=== PATIENT | male | born 1955 | race Caucasian/White ===

== ENCOUNTER 2019-06-29 09:46 | Inpatient (IN) ==
[2019-06-29 10:53] LABS: BASO# 0.03 X1000 (0.0-0.2); BASO% 0.4 % (0.0-0.8); EOS# 0.04 X1000 (0.0-0.7); EOS% 0.6 % (0.0-10.0); HEMATOCRIT 37.6 % (42.0-52.0); HEMOGLOBIN 12.6 g/dL (14.0-18.0); LYMPH# 1.44 X1000 (1.2-3.4); LYMPH% 21.3 % (20.5-51.1); MCH 28.8 PG (27-31); MCHC 33.5 g/dL (33-37); MONO# 0.56 X1000 (0.11-0.59); MONO% 8.3 % (1.7-9.3); MPV 10.2 FL (7.4-10.4); NEUT% 69.4 % (42.2-75.2); PLT 273 X1000 (130-400); RBC 4.37 XMIL (4.7-6.1); WBC 6.77 X1000 (4.8-10.8)
[2019-06-29 11:12] LABS: AGAP 14; ALB/GLOB RATIO 1.5; ALBUMIN 3.8 g/dL (3.5-5.0); ALKALINE PHOSPHATASE 87 U/L (32-122); BUN 16 mg/dL (8-22); CALCIUM 8.9 mg/dL (8.8-10.2); CHLORIDE 100 mmol/L (98-107); COSMO 283; CREATININE 0.9 mg/dL (0.7-1.2); ESTIMATED GFR > 60; GLUCOSE 308 mg/dL (70-104); GOT 14 U/L (10-34); GPT 16 U/L (10-44); POTASSIUM 4.5 mmol/L (3.5-5.1); SODIUM 135 mmol/L (136-145); TCO2 21 mmol/L (25-35); TOTAL BILIRUBIN 1.65 mg/dL (0.20-1.00); TOTAL PROTEIN 6.3 g/dL (6.3-8.3)
--- NOTE | 2019-06-29 11:31 | Diag Imaging Result Doc PS360 ---
EXAM: CHEST-2 VIEWS 06/29/2019 HISTORY: shortness of breath TECHNIQUE: PA and lateral chest COMMENT: There are sternotomy wires. The heart size is at the upper limits of normal. The inspiration is suboptimal. There is minimal ill-defined opacity over the left costophrenic angle which was not clearly present on 10/11/2018. Otherwise there has been no significant change considering differences in technique. IMPRESSION: Questionable left lower lobe pneumonia. Electronically signed by Abelino Lord 06/29/2019 11:29 AM
[2019-06-29] MEDS ORDERED: NS 1,000 ML ONE (11:51)
[2019-06-29] MEDS ORDERED: NS 1,000 ML IV ONE (11:51)
--- NOTE | 2019-06-29 12:53 | Diag Imaging Result Doc PS360 ---
EXAM: CT ANGIOGRAM PULMONARY ARTERIES 06/29/2019 HISTORY: elevated dimer TECHNIQUE: This exam was performed using automated exposure control, adjustment of mA or kV according to patient size, and/or use of iterative reconstruction technique. COMMENT: 3-D MIPS were performed. There are no filling defects in the pulmonary arteries. The aorta is not well opacified with contrast but is normal in caliber. There is extensive coronary calcification. There is a small hiatal hernia. There are no pleural fluid collections. There are some increased interstitial markings in the lung bases. There is platelike atelectasis in the right lower lobe. Some patchy groundglass opacities are seen adjacent to the pleura in the right upper lobe. There are prominent aorticopulmonary window and right paratracheal nodes. The regional skeleton is intact. IMPRESSION: No evidence of pulmonary emboli. Mild pulmonary edema. Coronary atherosclerosis. Nonspecific mediastinal adenopathy. Electronically signed by Abelino Lord 06/29/2019 12:50 PM
[2019-06-29 13:18] LABS: FREE T4 1.43 ng/dL (0.93-1.70); TSH 1.87 uIUmL (0.27-4.20)
[2019-06-29] MEDS ORDERED: TYLENOL PO PRN (13:21)
[2019-06-29] MEDS ORDERED: ZOFRAN IV PRN (13:21)
--- NOTE | 2019-06-29 13:50 | HISTORY AND PHYSICAL ---
HISTORY: Mr. Yoder is a 64-year-old white male. He is seen by CYNDIE Gill under Kelly Yoder. 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 He had a heart attack and underwent quadruple bypass. He has a past medical history of coronary artery disease, congestive heart failure, hypertension, hyperlipidemia. Of course a myocardial infarction in 2015. PAST SURGICAL HISTORY: He is status post CABG with 4 bypasses. ALLERGIES: He denies any known drug allergy. FAMILY HISTORY: He states he does not have a history of heart disease or lung disease or renal problems. No medical problems he is aware of. SOCIAL HISTORY: He never has smoked. Just occasional alcohol. No illicit drugs. He is . REVIEW OF SYSTEMS: General: No weight gain or loss. No fever or chills. HEENT: Unremarkable. Respiratory: No increased work of breathing or dyspnea until the last 2 weeks back. In fact he built a fence about a month ago, wooden fence which was a lot of work. He tolerated that pretty well and denies any change in visual or hearing acuity. He started having increased dyspnea and shortness of breath 2 weeks ago and is just progressed. Denies really orthopnea or paroxysmal nocturnal internal dyspnea. He did state he has had some tightness in his chest off and on for the last couple weeks, actually the last week and complained of muscle cramping in the left leg in particular. Did not complain of pedal edema. No fever or chills. GI/: No change in his bowels or urinary habits. No sign of gross hematuria. Musculoskeletal: Neurologic just muscle cramps. No focal changes. Endocrinologic/hemologic: No significant history. PHYSICAL EXAMINATION: Temperature 97.7 degrees, pulse 86, respirations 19, blood pressure 122/91. GENERAL: Weight 190 pounds, height 5 feet 8.5 inches. 8 0.5 inches pupils are equal and round. HEENT: Pupils are equal round. Oral nasal mucosa unremarkable. LUNGS: In careful examination, the left lower lobe you can appreciate some rhonchi. CARDIOVASCULAR: Regular rhythm and rate without murmur or S3. NECK: Veins it is it is difficult. He has a full oliver is hard to tell what the neck pressure was. He says his mouth is dry. Supple. No thyromegaly. LUNGS: Lungs are clear anterolateral and posterior. ABDOMEN: Soft. SKIN: Warm and dry. EXTREMITIES: Without edema. No clubbing. SKIN: Without rashes. LABORATORY DATA: White blood cell count 6770, hematocrit 37, platelet count 273,000. Sodium 135, potassium 4.5, chloride 100, BUN 16, creatinine 0.9. Blood sugar 308. AST 14, ALT 16, alkaline phosphatase 87, albumin is 3.8. D-dimer was mildly elevated at 0.58. Chest x-ray shows questionable left lower lobe pneumonia. Pulmonary arteriogram no evidence of pulmonary emboli, mild pulmonary edema, coronary atherosclerosis, nonspecific mediastinal adenopathy. ASSESSMENT AND PLAN: 1. Questionable left lower lobe pneumonia and shortness of breath sounds more consistent with pulmonary venous hypertension. Radiographically, it is not real impressive. I think we ought to check an echocardiogram and we will check serial cardiac enzymes troponin and CK and treat him empirically for the pneumonia. 2. Coronary artery disease, history of bypass in 2015, coronary artery bypass grafting bypass x4. 3. Hypertension. 4. Hyperlipidemia. 5. We will get serial electrocardiograms as well. REVIEW OF MEDICATIONS: Home medicines: We will keep him on his aspirin 325 mg a day, Coreg 3.125 mg b.i.d., Celexa 10 mg at bedtime, Lasix 20 mg p.o. b.i.d., Neurontin 300 mg b.i.d., glimepiride 4 mg q.a.m., insulin glargine 22 units q.a.m., Prinivil 5 mg q.a.m., lisinopril 20 mg a day, metformin 500 mg b.i.d., and he takes Robaxin 750 mg p.o. b.i.d. p.r.n. We will get serial electrocardiograms as well this. cc: Shahzad Escobar MD
[2019-06-29] MEDS: ROCEPHIN 1 GM in NS 50 ML IV SCH (14:50)
--- NOTE | 2019-06-29 15:16 | CARDIOLOGY CONSULTATION ---
DATE: 06/29/2019 CHIEF COMPLAINT ON PRESENTATION: Chest tightness, shortness of breath. HISTORY OF PRESENT ILLNESS: Mr. Yoder is a 64-year-old, white male with a history of coronary artery bypass grafting who presented for shortness of breath and chest tightness that has been worsening over the last week or so. Patient reports this will occur with activities such as getting up and walking around in the house as well as with lying down in bed. He has reported no recent fevers or coughs. The patient reports compliance with his medications and sees Dr. Dia Hernandez in [place] for his cardiology followup, last saw him around 1 month ago. PAST MEDICAL HISTORY: 1. He has a history of a 4 vessel bypass performed in April of 2015 in [place], [place]. This was a FERNANDEZ to the LAD, vein graft to the first obtuse marginal, vein graft to the first diagonal, and vein graft to the PDA. I am not aware of any testing that the patient has had since then. He thinks he had an echocardiogram but it does not sound like he has had any ischemic testing since then. 2. Diabetes. 3. Hypertension. 4. Hyperlipidemia. SOCIAL HISTORY: He does not smoke. Rare alcohol. No illicit drugs. 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 FAMILY HISTORY: No history of heart disease or lung disease in the first-degree family members. REVIEW OF SYSTEMS: A 10 system review of systems is negative except for those things mentioned in the HPI. PHYSICAL EXAMINATION: Vital Signs: He is afebrile, heart rate is 60, blood pressure 103/82. General: He is in no acute distress. HEENT: Oropharynx is moist. Poor dentition. Eye examination shows pink conjunctivae and white sclerae. Neck: Examination shows no obvious thyromegaly or thyroid tenderness. Cardiovascular: He sounds to be in a regular rate and rhythm. He has no obvious murmurs. He has no S3. He has no lower extremity edema. He has no carotid bruits. Chest Examination: Clear bilaterally. He has no increased work of breathing. Abdomen: Soft, nontender, nondistended. He has no obvious organomegaly. Skin: Examination is warm and dry throughout without any rashes. Neurological: He is moving all extremities well. He has no lateralizing deficits. PERTINENT DATA: His EKG shows sinus rhythm. He has suggestion of left atrial enlargement, nonspecific ST-T changes. He had a pulmonary arteriogram demonstrating no evidence of pulmonary emboli. Mild pulmonary edema is identified, coronary atherosclerosis as well. His lab data shows a white count of 6.7, hematocrit 37, platelet count 273,000. His sodium is 135, potassium is 4.5, BUN is 16, creatinine 0.9. Cardiac enzymes are negative. He does not have a proBNP back as of yet. ASSESSMENT: Mr. Yoder is a 64-year-old gentleman with a history of coronary artery disease who presented with the above symptomatology, concerning for possible heart failure and/or ischemia. PLAN: We will proceed with myocardial perfusion imaging in the morning. We will check an echocardiogram. We restarted some of his medications. We will check a lipid profile. Patient, for some reason, is not listed to be on a statin at home but likely will need high-intensity statin therapy. I will initiate atorvastatin at a dose of 40 mg at bedtime. We will ensure that he is on an 81 mg aspirin as well. cc: Arash Zelaya MD
[2019-06-29] MEDS: ZITHROMAX 500 MG/NS 500 MG/250 ML IVPB IV SCH (15:19)
[2019-06-29] MEDS: DUONEB (A & A) INH SCH ×3 (15:54→23:20)
[2019-06-29] MEDS: LIPITOR PO SCH (20:31)
[2019-06-29] MEDS: COREG PO SCH (20:31)
--- NOTE | 2019-06-29 22:47 | EKG Report ---
Test Performed on : 06/29/2019 09:51:46 AM Test Reason : SOB Blood Pressure : / mmHG Vent. Rate : 089 BPM Atrial Rate : 089 BPM P-R Int : 188 ms QRS Dur : 102 ms QT Int : 392 ms P-R-T Axes : 051 -17 090 degrees QTc Int : 476 ms Normal sinus rhythm. Possible Left atrial enlargement Nonspecific T wave abnormality Prolonged QT Abnormal ECG When compared with ECG of 04-AUG-2018 10:24, Criteria for Anterior infarct are no longer present Unconfirmed Result
[2019-06-30] MEDS: DUONEB (A & A) INH SCH ×7 (04:59→22:57)
[2019-06-30 06:14] LABS: BASO# 0.03 X1000 (0.0-0.2); BASO% 0.4 % (0.0-0.8); EOS# 0.06 X1000 (0.0-0.7); EOS% 0.8 % (0.0-10.0); HEMATOCRIT 40.3 % (42.0-52.0); IMM GRAN# 0.02 X1000 (0.0-0.04); IMM GRAN% 0.3 % (0.0-0.5); LYMPH# 1.48 X1000 (1.2-3.4); LYMPH% 19.6 % (20.5-51.1); MCH 28.1 PG (27-31); MCHC 32.3 g/dL (33-37); MCV 87.2 FL (81-99); MONO# 0.43 X1000 (0.11-0.59); MONO% 5.7 % (1.7-9.3); MPV 10.5 FL (7.4-10.4); NEUT# 5.55 X1000 (1.4-6.5); NEUT% 73.2 % (42.2-75.2); PLT 266 X1000 (130-400); RBC 4.62 XMIL (4.7-6.1); RDW 14.3 % (11.5-14.5); WBC 7.57 X1000 (4.8-10.8)
[2019-06-30 06:24] LABS: AGAP 14; BUN 16 mg/dL (8-22); CALCIUM 8.2 mg/dL (8.8-10.2); CHLORIDE 102 mmol/L (98-107); CHOLESTEROL 114 mg/dL (0-200); COSMO 284; CREATININE 1.2 mg/dL (0.7-1.2); ESTIMATED GFR > 60; GLUCOSE 191 mg/dL (70-104); HDL 23 mg/dL (35-55); LDL 77 mg/dL; POTASSIUM 4.9 mmol/L (3.5-5.1); SODIUM 139 mmol/L (136-145); TCO2 23 mmol/L (25-35); TRIGLYCERIDES 70 mg/dL (39-160); VLDL 14 mg/dL
[2019-06-30] MEDS ORDERED: LEXISCAN ONE (07:57)
[2019-06-30] MEDS ORDERED: PRINIVIL PO SCH (09:00)
--- NOTE | 2019-06-30 09:16 | CARDIOLOGY PROGRESS NOTE ---
DATE: 06/30/2019 SUBJECTIVE: Mr. Yoder reports he feels much better this morning. He did not have any chest pain overnight. PHYSICAL EXAMINATION: Vital Signs: Afebrile. Heart rate 88, blood pressure 139/96. His I's and O's are limited and appear relatively matched. General: No acute distress. Cardiovascular: He sounds to be in a regular rate and rhythm. He has no murmurs. He has no S3. Extremities: No lower extremity edema. Chest: Sounds clear bilaterally. He has no increased work of breathing. Abdomen: Soft, nontender. PERTINENT DATA: White count 7.6, hematocrit 40, platelet count is 266,000. His sodium is 139, potassium 4.9, BUN 16, creatinine is 1.2. LDL 77, HDL 23. ASSESSMENT: Mr. Yoder is a 64-year-old gentleman who came in with some shortness of breath, chest tightness. It has been worse over the last week or so, not clearly exertional. PLAN: I will give him a dose of Lasix today. Perfusion imaging is currently pending as is his echocardiogram. We will recheck laboratories in the morning. His medications were re-initiated yesterday. His lipids are not at goal. I have already initiated atorvastatin at a dose of 40 mg at bedtime. He was apparently statin naive prior to that. ADDENDUM: A large LV thrombus is noted on his echo today. Will initiate lovenox. cc: MD DREA Arndt
[2019-06-30] MEDS: ASPIRIN EC PO SCH (10:35)
[2019-06-30] MEDS: ALDACTONE PO SCH (10:35)
[2019-06-30] MEDS: COREG PO SCH ×2 (10:35→23:01)
[2019-06-30] MEDS: ROCEPHIN 1 GM in NS 50 ML IV SCH (14:49)
[2019-06-30] MEDS: LOVENOX SUBQ SCH ×2 (14:57→23:01)
[2019-06-30] MEDS: LASIX IV SCH (14:57)
[2019-06-30] MEDS: ZITHROMAX 500 MG/NS 500 MG/250 ML IVPB IV SCH (15:53)
--- NOTE | 2019-06-30 16:46 | Diag Imaging Result Document ---
PROCEDURE NAME: MYOCARDIAL PERF SCAN, STR/REST - 06/30/2019 STUDY: Rest/stress Lexiscan myocardial perfusion study. INDICATION: Patient with chest pain. DESCRIPTION: The patient came into the nuclear laboratory, received resting injection of technetium 99 sestamibi 12.5 mCi. Multiple tomographic views of the cardiac structures were obtained at rest. Subsequently, the patient underwent infusion of Lexiscan 0.4 mg. At peak infusion, injected with technetium 99 sestamibi 36.4 mCi. Multiple tomographic views of the cardiac structures were obtained following the completion of the exercise protocol. SUMMARY OF THE ELECTROCARDIOGRAPHIC PORTION OF THE STUDY: Resting ECG shows sinus rhythm, rate is 85 beats per minute. Resting blood pressure 143/105. Resting ECG shows evidence of septal scar and diffuse ST-T abnormality. During the protocol, the heart rate increased to a maximum of 94 beats per minute. Blood pressure went up to 158/113. The patient reported no chest pain, shortness of breath, or palpitations. The ECG showed no changes. Following the completion of the test, the heart rate and blood pressure returned back to their baseline. In summary, the electrocardiographic response to Lexiscan infusion is unremarkable. SUMMARY OF THE MYOCARDIAL PERFUSION PORTION OF THE STUDY: Poststress tomographic views of the left ventricle showed a severe, extensive inferolateral wall defect. The defect spans the base of the lateral/inferolateral wall all the way to the apical portion. The stress images also showed the tiny focal apical defect and a very trivial, tiny mid anterior wall defect. The rest images showed the inferolateral defect and the apical defect are fixed. There is tiny reversibility in the mid anterior wall. This is really not significant. Polar plots revealed basically the same. There is no convincing evidence of inducible ischemia. There is extensive inferolateral wall scar. That would be consistent with an extensive inferolateral myocardial infarction. Gated SPECT shows significant enlargement of the left ventricular chamber with significant impairment of systolic function. Ejection fraction 30% using the [employer] software and 22% using the [employer] software. The lung/heart ratio is elevated. TID is 1.01. SUMMARY: This study shows: 1. Abnormal resting electrocardiogram with an unremarkable response to infusion of Lexiscan. 2. Abnormal poststress myocardial perfusion scan. There is scintigraphic evidence of an extensive inferolateral wall scar. There is really no evidence of any significant degree of inducible ischemia. 3. Significantly impaired left ventricular systolic function with ejection fraction of 30% with global impairment, more so at the level of the inferolateral wall. The chamber is significantly enlarged. 4. This study suggests an old inferolateral scar and this increases the patient's risk for future cardiac events. cc: MD Arash Franks MD
--- NOTE | 2019-06-30 18:50 | PROGRESS NOTE ---
DATE: 06/30/2019 SUBJECTIVE: Mr. Yoder really wanted to go home. He is feeling much better, breathing much more comfortably. Unfortunately, echocardiogram showed a mural thrombus. I think he has been told this before at 1 time he was supposed to be on Xarelto and he never did get the prescription I do not believe. He is breathing better. OBJECTIVE: Vital Signs: He remains afebrile, temperature 98.1 degrees, pulse 90, respirations 16, blood pressure 118/73. HEENT: Pupils are equal and round. Lungs: Are clear in all lung ochoa. Cardiovascular: Regular rate without murmur or S3. Abdomen: Soft, skin is warm and dry. OUTPUT: Urine output is was about 1000 mL yesterday. ASSESSMENT AND PLAN: 1. This 64-year-old came in with shortness of breath, chest tightness has been worse in the last week. He was given a dose of Lasix. This morning, perfusion imaging currently was pending, but review of the echocardiogram it appears he has a mural thrombus. His myocardial perfusion scan abnormal. Resting EKG unremarkable response to infusion of Lexiscan. Abnormal post stress myocardial perfusion scan with extensive inferior lateral wall scar. No evidence of any significant degree of inducible ischemia. Significantly impaired left ventricular systolic function, ejection fraction was 30% global impairment more so at the level inferior lateral wall. Chamber was significantly enlarged. Studies suggest an old inferior lateral scar and then echocardiogram showed a mural thrombus. So, plan is to start some Lovenox and probably need to be on a long-term anticoagulant for least 3 months. 2. Congestive heart failure with reduced ejection fraction. Appears to have better compensation. 3. History of coronary artery disease. I do not see evidence of active ischemia, but he did present with chest pain. Note that his pulmonary arteriogram did not show any pulmonary thromboemboli, so keep him here. Put him on Lovenox. Hopefully can be discharged soon on anticoagulant. LABORATORY DATA: Review of his lab today white count 7570, hematocrit 40, platelet count 266,000. Electrolytes look good. Creatinine 1.2. Sodium 139, potassium 4.9, chloride 102, BUN 16, calcium 8.2. cc: Shahzad Escobar MD
--- NOTE | 2019-06-30 19:10 | ECHO REPORT ---
ORDER DATE: 06/30/2019 INTERPRETING PHYSICIAN: Dr. Virgen CLINICAL INDICATIONS: CHF. M-MODE MEASUREMENTS: Left ventricle end diastole: 6.3 cm. Left ventricle end systole: 5.9 cm. Posterior wall: 0.7 cm. Interventricular septum: 1.0 cm. Left atrium: 5.1 cm. Aortic root: 3.1 cm. SUMMARY OF 2-DIMENSIONAL IMAGIN. Left ventricular chamber is markedly dilated. There is significant impairment of the posterolateral wall of the left ventricle. The apex is severely hypokinetic- akinetic ,and there is evidence of organized thrombus attached to the apex measuring in dimensions 2.7 x 2.1 x 1.9 cm. It is dense and well attached. It is not oscillating. LV EF estimated at 27-30%. 2. The aortic valve shows sclerosis of the cusps. Color flow mapping is unremarkable. The cardiac output is low. There is no stenosis. 3. Mitral valve shows moderate degree of regurgitation. There is suggestion of a ruptured chordae with a jet of regurgitation that is directed posteriorly. 4. The pulmonic valve is unremarkable. 5. The tricuspid valve shows moderate degree of regurgitation. 6. The pulmonary pressure is significantly elevated, estimated at 84 mmHg. 7. There is no pericardial effusion. 8. The right-sided chambers appear to be moderately enlarged. Clinical correlation is strongly recommended. Dr. Arash Zelaya was notified early in the morning about these findings. cc: MD Zahra Franks CRNP MTDD
[2019-06-30] MEDS: LIPITOR PO SCH (23:01)
[2019-07-01] MEDS: DUONEB (A & A) INH SCH ×6 (03:54→22:52)
[2019-07-01 07:00] LABS: AGAP 10; BUN 20 mg/dL (8-22); CALCIUM 8.6 mg/dL (8.8-10.2); CHLORIDE 101 mmol/L (98-107); COSMO 277; CREATININE 1.2 mg/dL (0.7-1.2); ESTIMATED GFR > 60; GLUCOSE 147 mg/dL (70-104); MAGNESIUM 2.1 mg/dL (1.5-2.7); POTASSIUM 4.1 mmol/L (3.5-5.1); SODIUM 136 mmol/L (136-145); TCO2 25 mmol/L (25-35)
[2019-07-01] MEDS: ASPIRIN EC PO SCH (08:49)
[2019-07-01] MEDS: COREG PO SCH ×2 (08:50→22:02)
[2019-07-01] MEDS: ALDACTONE PO SCH (08:50)
[2019-07-01] MEDS: LASIX IV SCH (08:50)
[2019-07-01] MEDS ORDERED: COZAAR PO SCH (09:00)
--- NOTE | 2019-07-01 09:22 | Extremity Venous Study ---
PROCEDURE NAME: Venous U/S Bilateral Legs - 06/29/2019 REQUESTING PROVIDER: Yvonne MATERIAL LIAISON: David INDICATION: Elevated D-dimer. EQUIPMENT: [employer] Vivid E9 ultrasound system with a 9 L-D transducer. FINDINGS: Images of bilateral lower extremity venous systems were obtained in both sagittal and transverse planes. Doppler was used to evaluate veins for spontaneity, phasicity, respiratory excursion, and digital augmentation. Results are normal venous compression, normal venous flow. No obvious superficial or deep venous thrombosis noted. INTERPRETATION: Essentially normal bilateral lower extremity venous study. cc: MD Zahra Fu CRNP
[2019-07-01] MEDS: LOVENOX SUBQ SCH ×2 (12:33→23:15)
[2019-07-01] MEDS: ROCEPHIN 1 GM in NS 50 ML IV SCH (13:15)
--- NOTE | 2019-07-01 13:25 | CARDIOLOGY PROGRESS NOTE ---
DATE: 07/01/2019 SUBJECTIVE: Mr. Yoder reports he feels much better. He has no orthopnea, no chest pain. PHYSICAL EXAMINATION: Afebrile. Heart rate 81. His blood pressure is 147/92. Is and Os are quite negative, somewhere around 4.8 L negative. Generally, he is no acute distress. Cardiovascular: He sounds to be in a regular rate and rhythm. He has no murmurs. He has no S3. He has no lower extremity edema. His chest exam sounds clear bilaterally. He has no increased work of breathing. His abdomen is soft and nontender. He has no obvious organomegaly. PERTINENT DATA: His sodium is 136, potassium is 4.1, his BUN is 20, creatinine is 1.2. His magnesium level is 2.1. His proBNP is 4147. LDL is 77. ASSESSMENT: Mr. Yoder is a 64-year-old male who presented with heart failure type symptoms. PLAN: His nuclear scan shows an EF of somewhere in the 22 to 30 percent range. He has a fixed defect in the inferolateral territory with no degree of ischemic changes. His echocardiogram shows an EF in the 25 to 30 percent range as well. Evidence for a thrombus was identified. We will continue to titrate medications. The patient reports he does not have any insurance so we will continue him on losartan for the time-being, titrating the dose up to 100 mg. I will initiate warfarin tonight as well at a dose of 5 mg. He is on Lovenox for his thrombus. We will check INRs. Continue with medical therapy. cc: Arash Zelaya MD
[2019-07-01] MEDS: ZITHROMAX 500 MG/NS 500 MG/250 ML IVPB IV SCH (13:43)
[2019-07-01 15:43] LABS: INR 1.38; PROTIME 17.2 Seconds (11.0-16.0)
[2019-07-01] MEDS ORDERED: COUMADIN PO SCH (21:00)
--- NOTE | 2019-07-01 21:55 | PROGRESS NOTE ---
DATE: 07/01/2019 SUBJECTIVE: The patient is resting comfortably in bed. He has no complaints at this time. OBJECTIVE: Vital Signs: Temperature 98.1 degrees, blood pressure 126/95, heart rate 81, respirations 18, O2 saturation is 95% on room air. General: This is an elderly male, lying in bed in no acute distress. Heart: S1, S2 normal, regular rate and rhythm. Lungs: Equal air entry bilaterally. No wheezing. No rales. No rhonchi. Abdomen: Positive bowel sounds. Soft, nontender, nondistended. Extremities: No edema, no cyanosis. Neurologic: The patient is alert and oriented x3. DIAGNOSTIC STUDIES: INR 1.3. Sodium 136, potassium 4.1, chloride 101, CO2 of 25, BUN 20, creatinine 1.2, glucose 147. ASSESSMENT AND PLAN: 1. Acute on chronic systolic congestive heart failure exacerbation. Continue with the treatment regimen as directed by the faceter. 2. Left ventricular thrombus. The patient is on Lovenox and Coumadin. Continue to monitor the INR until it is therapeutic. 3. Diabetes mellitus type 2. Continue with sliding scale insulin. 4. Cardiomyopathy. Aware. Continue on the current cardiac medications. 5. Hypertension. Continue with the antihypertensive titration as directed by the faceter. cc: Jojo Sue MD MTDD
[2019-07-01] MEDS: LIPITOR PO SCH (22:03)
[2019-07-02] MEDS: DUONEB (A & A) INH SCH ×6 (03:36→23:16)
[2019-07-02 07:20] LABS: HEMATOCRIT 39.6 % (42.0-52.0); MCH 28.3 PG (27-31); MCHC 32.8 g/dL (33-37); MCV 86.3 FL (81-99); MPV 10.2 FL (7.4-10.4); RBC 4.59 XMIL (4.7-6.1); RDW 14.1 % (11.5-14.5); WBC 6.44 X1000 (4.8-10.8)
[2019-07-02 07:34] LABS: INR 1.34; PROTIME 16.8 Seconds (11.0-16.0)
--- NOTE | 2019-07-02 07:39 | Diag Imaging Result Doc PS360 ---
EXAM: CHEST-1 VIEW HISTORY: dyspnea TECHNIQUE: Single view COMPARISON: 06/29/2019 FINDINGS: The lungs are well expanded. The heart is mildly enlarged. There are sternal wires and surgical clips. The vessels are not distended. There are no infiltrates. No effusion identified. IMPRESSION: Mild cardiomegaly. Electronically signed by Tanmay Vail 07/02/2019 7:37 AM
[2019-07-02 07:45] LABS: AGAP 13; BUN 19 mg/dL (8-22); CALCIUM 7.9 mg/dL (8.8-10.2); CHLORIDE 102 mmol/L (98-107); COSMO 284; ESTIMATED GFR > 60; GLUCOSE 166 mg/dL (70-104); POTASSIUM 3.8 mmol/L (3.5-5.1); SODIUM 139 mmol/L (136-145); TCO2 24 mmol/L (25-35)
[2019-07-02] MEDS: ASPIRIN EC PO SCH (08:25)
[2019-07-02] MEDS: ALDACTONE PO SCH (08:25)
[2019-07-02] MEDS: COREG PO SCH ×2 (08:25→20:02)
[2019-07-02] MEDS: COZAAR PO SCH (08:25)
[2019-07-02] MEDS: LASIX IV SCH (08:26)
[2019-07-02] MEDS ORDERED: ENTRESTO 24 MG-26 MG TABLET PO SCH (09:00)
--- NOTE | 2019-07-02 13:23 | CARDIOLOGY PROGRESS NOTE ---
DATE: 07/02/2019 SUBJECTIVE: Mr. Yoder reports he is doing well. He has no lower extremity edema. No pain complaints and no orthopnea. OBJECTIVE: Afebrile. Heart rate 69. Blood pressure 100/68. Most of his systolics have been in the 100s to 120 range.General: He is in no acute distress. Cardiovascular: He sounds to be in a regular rate and rhythm. He has no obvious murmurs. He has no S3. He has no lower extremity edema. Chest: Exam is clear bilaterally. He has no increased work of breathing. Abdomen: His abdomen is soft and nontender. PERTINENT DATA: White count 6.4, hematocrit 39, and platelet count is 251,000. His INR today is 1.3 as it was yesterday. BUN and creatinine are 19 and 1.0. ProBNP was 2380. Admission proBNP was 5420. Chest x-ray demonstrates mild cardiomegaly with no evidence of vascular distention or edema. ASSESSMENT: Mr. Yoder is a 64-year-old gentleman with history of coronary disease. He presented with new onset of heart failure. PLAN: Nuclear perfusion imaging shows fixed defects with an ejection fraction of around 30%. The defects were identified in the inferior lateral wall. Again, no evidence of ischemia. Wall motion abnormalities were identified consistent with that. His echocardiogram demonstrated an EF in the 25 to 30 percent range with a large LV thrombus. He has been initiated on Lovenox and warfarin. The patient does not have insurance coverage. He was diuresed, and initiated on a heart failure regimen including beta blockers, and changed to an ARB as well as spironolactone. From my standpoint, the patient to be discharged with Lovenox shots at home given 1 mg per kg b.i.d. with followup with his primary clinical programmer Dr. Hernandez. He is on warfarin at a dose of 5 mg at bedtime. At this point, he seems relatively stable from a cardiovascular standpoint. He has diuresed. I will stop his IV Lasix, and place him on oral Lasix at a dose of 40 mg daily. He was previously on 20 mg daily. cc: Arash Zelaya MD
[2019-07-02] MEDS: LOVENOX SUBQ SCH ×2 (13:53→23:03)
[2019-07-02] MEDS: ROCEPHIN 1 GM in NS 50 ML IV SCH (13:54)
[2019-07-02] MEDS: ZITHROMAX 500 MG/NS 500 MG/250 ML IVPB IV SCH (14:44)
--- NOTE | 2019-07-02 19:47 | PROGRESS NOTE ---
DATE: 07/02/2019 SUBJECTIVE: The patient is resting comfortably in bed. He denies having any chest pain or shortness of breath. No acute events noted overnight. OBJECTIVE: Vital Signs: Temperature 98.2 degrees, blood pressure 137/98, heart rate 88, respirations 18, O2 saturation is 98% on room air. Intake 1.5 L, output 1.9 L. General: This is a chronically ill-appearing, elderly male, lying in bed in no acute distress. Heart: S1, S2 normal. Regular rate and rhythm. Lungs: Equal air entry bilaterally. No wheezing. No rales. No rhonchi. Abdomen: Positive bowel sounds. Soft, nontender, nondistended. Extremities: No edema. No cyanosis. Neurologic: The patient is alert and oriented x4. LABORATORY AND DIAGNOSTIC DATA: INR 1.34. White blood cell count 6.4, hemoglobin 13, hematocrit 39, platelets 251,000. BUN 19, creatinine 1, glucose 166. Chest x-ray shows mild cardiomegaly. ASSESSMENT AND PLAN: 1. Acute on chronic systolic congestive heart failure exacerbation. Continue on the current medications as prescribed by the welfare manager. 2. Left ventricular thrombus. We will continue on Lovenox and Coumadin until the INR is therapeutic, will then discontinue the Lovenox. There is no assistance available for Lovenox therapy at home since the patient does not have health insurance. 3. Diabetes mellitus type 2. We will restart the metformin. 4. Hypertension. Slowly improving. Continue on the current antihypertensive regimen. 5. Constipation. Will start laxative therapy. 6. Disposition. Will plan to discharge the patient home once his INR is therapeutic. cc: Jojo Sue MD [facility]
[2019-07-02] MEDS: LIPITOR PO SCH (20:02)
[2019-07-02] MEDS: COLACE PO SCH (20:11)
[2019-07-02] MEDS: MIRALAX PO SCH (20:12)
[2019-07-02] MEDS ORDERED: COUMADIN PO SCH ×3 (21:00)
[2019-07-03] MEDS: DUONEB (A & A) INH SCH ×2 (03:28→07:50)
[2019-07-03 07:35] LABS: INR 1.27; PROTIME 16.1 Seconds (11.0-16.0)
[2019-07-03 07:45] LABS: AGAP 12; BUN 19 mg/dL (8-22); CHLORIDE 97 mmol/L (98-107); COSMO 276; CREATININE 1.1 mg/dL (0.7-1.2); ESTIMATED GFR > 60; GLUCOSE 192 mg/dL (70-104); POTASSIUM 3.7 mmol/L (3.5-5.1); SODIUM 134 mmol/L (136-145); TCO2 25 mmol/L (25-35)
[2019-07-03 07:53] VITALS: BP 123/78
[2019-07-03] MEDS: COLACE PO SCH (08:31)
[2019-07-03] MEDS: COZAAR PO SCH (08:31)
[2019-07-03] MEDS: MIRALAX PO SCH (08:31)
[2019-07-03] MEDS: COREG PO SCH (08:32)
[2019-07-03] MEDS: ALDACTONE PO SCH (08:32)
[2019-07-03] MEDS: ASPIRIN EC PO SCH (08:32)
[2019-07-03] MEDS ORDERED: LASIX PO SCH (09:00)
[2019-07-03] MEDS ORDERED: COUMADIN PO SCH (21:00)
--- NOTE | 2019-07-03 22:28 | DISCHARGE SUMMARY ---
ADMISSION DATE: 06/29/2019 DISCHARGE DATE: 07/03/2019 FINAL DISCHARGE DIAGNOSES: 1. Acute on chronic systolic congestive heart failure exacerbation. 2. Left ventricular thrombus. 3. Diabetes mellitus type 2. 4. Hypertension. 5. Constipation. 6. Cardiomyopathy. 7. Coronary artery disease, status post coronary artery bypass graft. CONSULTATIONS: Cardiology consultation with Dr. Arash Zelaya. DIAGNOSTIC DATA: 1. Chest x-ray performed on 06/29/2019 that showed a questionable left lower lobe pneumonia. 2. Pulmonary arteriogram performed on 06/29/2019 that revealed mild pulmonary edema. No evidence of pulmonary embolism. 3. Bilateral lower venous Doppler which revealed no evidence of DVT. 4. Echocardiogram performed on 06/30/2019 that revealed an ejection fraction of 27% to 30%. There is a thrombus attached to the apex that measures 2 x 2 x 1.9 cm. 5. Myocardial perfusion scan performed on 06/30/2019 that revealed evidence of an old inferolateral scar. HOSPITAL COURSE: Mr. Yoder is a 64-year-old male with a history of coronary artery disease, hypertension, diabetes mellitus type 2 and hyperlipidemia, who presented to the ER with a chief complaint of shortness of breath and chest tightness. In the ER, chest x-ray was done that revealed the possibility of a left lower lobe pneumonia. Also a CT angiogram of the pulmonary artery was done that showed no evidence of pulmonary embolism, but did reveal some mild pulmonary edema. The patient was admitted to the hospitalist service. Serial cardiac enzymes were obtained and an echocardiogram was ordered. Cardiology was also consulted given the patient's extensive cardiac history. The patient was scheduled for myocardial perfusion scan, which was performed and it revealed evidence of an old inferolateral scar. The patient's echocardiogram also revealed evidence of LV thrombus. As a result the patient was started on Lovenox and Coumadin for anticoagulation. The patient's cardiac medications were also adjusted. The patient stated that he did not have insurance; therefore, he needed to stay in the hospital for his INR to become therapeutic. The patient stated that he did not want to remain in the hospital, and decided to leave against medical advice. The patient was advised that it was in his best interest to stay in the hospital, given the severity of the finding. The patient was told that he runs the risk of having a heart attack or even without treatment. The patient stated that he was willing to take the risk and would return to the ER if he had further issues. The patient was also advised to follow up with his assisted living manager in [place], Dr. Hernandez. The patient ultimately left against medical advice on 07/03/2019. cc: MD Joseline Cooper CRNP Dr. Neal MTDD
== END 2019-07-03 11:10 | disposition left against medical advice (07) | DRG 292 ==
LOC: ED 09:46 → 3N 12:55 → SUATTDRO 12:55
PROVIDERS: ATTEND Internal Medicine

== ENCOUNTER 2019-08-04 21:45 | Inpatient (IN) ==
--- NOTE | 2019-08-04 21:53 | EKG Report ---
Test Performed on : 08/04/2019 9:50:52 PM Test Reason : CP Blood Pressure : / mmHG Vent. Rate : 093 BPM Atrial Rate : 093 BPM P-R Int : 216 ms QRS Dur : 126 ms QT Int : 384 ms P-R-T Axes : 063 015 077 degrees QTc Int : 477 ms Sinus rhythm. with 1st degree AV block. Possible Left atrial enlargement Nonspecific intraventricular block Nonspecific T wave abnormality Abnormal ECG When compared with ECG of 29-JUN-2019 09:51, (Unconfirmed) QRS duration has increased Confirmed by Kathy PANTOJA, Tariq ([id number]) on 08/05/2019 9:01:54 AM
[2019-08-04] MEDS ORDERED: NITROGLYCERIN TOP ONE (22:01)
[2019-08-04] MEDS ORDERED: ASPIRIN PO ONE (22:02)
[2019-08-04 22:28] LABS: BASO# 0.02 X1000 (0.0-0.2); BASO% 0.2 % (0.0-0.8); EOS# 0.17 X1000 (0.0-0.7); EOS% 2.1 % (0.0-10.0); HEMATOCRIT 46.6 % (42.0-52.0); HEMOGLOBIN 15.4 g/dL (14.0-18.0); IMM GRAN# 0.02 X1000 (0.0-0.04); IMM GRAN% 0.2 % (0.0-0.5); LYMPH# 3.13 X1000 (1.2-3.4); LYMPH% 38.8 % (20.5-51.1); MCH 27.4 PG (27-31); MCV 82.8 FL (81-99); MONO# 0.57 X1000 (0.11-0.59); MONO% 7.1 % (1.7-9.3); MPV 10.3 FL (7.4-10.4); NEUT# 4.15 X1000 (1.4-6.5); NEUT% 51.6 % (42.2-75.2); PLT 222 X1000 (130-400); RBC 5.63 XMIL (4.7-6.1); RDW 14.8 % (11.5-14.5); WBC 8.06 X1000 (4.8-10.8)
[2019-08-04 22:33] LABS: AGAP 16; ALB/GLOB RATIO 1.2; ALBUMIN 4.2 g/dL (3.5-5.0); ALKALINE PHOSPHATASE 94 U/L (32-122); BUN 19 mg/dL (8-22); CALCIUM 9.2 mg/dL (8.8-10.2); CHLORIDE 100 mmol/L (98-107); CK PROFILE 111 U/L (24-204); COSMO 291; CREATININE 1.1 mg/dL (0.7-1.2); ESTIMATED GFR > 60; GLUCOSE 270 mg/dL (70-104); GOT 29 U/L (10-34); GPT 38 U/L (10-44); MAGNESIUM 2.1 mg/dL (1.5-2.7); POTASSIUM 3.9 mmol/L (3.5-5.1); SODIUM 140 mmol/L (136-145); TCO2 24 mmol/L (25-35); TOTAL BILIRUBIN 1.47 mg/dL (0.20-1.00); TOTAL PROTEIN 7.6 g/dL (6.3-8.3)
[2019-08-04] MEDS ORDERED: MORPHINE IV ONE (22:37)
--- NOTE | 2019-08-04 22:38 | PROVIDER DOCUMENTATION ---
This chart was entered by Jade Couch Scribe, acting as scribe for Aston Davila MD. HPI-Chest Pain - General Stated Complaint: CP--HEART PT Time Seen by Provider: 08/04/19 21:55 Source: patient Allergies/Adverse Reactions: Patient Allergies Allergy/AdvReac Type Severity Reaction Status Date / Time No Known Allergies Allergy Verified 08/04/19 22:38 Home Medications: Home Medication List Medication Instructions Recorded Confirmed Last Taken Type Carvedilol [Coreg] 25 mg PO BID 07/18/15 08/04/19 08/04/19 History Furosemide [Lasix] 20 mg PO QAM 07/18/15 08/04/19 08/04/19 History Glimepiride 4 mg PO QAM 07/18/15 08/04/19 08/04/19 History Spironolactone [Aldactone] 25 mg PO QAM 07/18/15 08/04/19 08/04/19 History Lisinopril 20 mg PO DAILY #30 tab 08/04/18 08/04/19 08/04/19 Rx ATORVAstatin [Lipitor] 10 mg PO DAILY 08/04/19 08/04/19 08/04/19 History Metformin HCl 1,000 mg PO BID 08/04/19 08/04/19 08/04/19 History Potassium Chloride [Klor-Con M10] 10 meq PO DAILY 08/04/19 08/04/19 08/04/19 History - History of Present Illness-CP Nature of Presenting Problem: pt is a 64 yr old male presenting with 1 hour complaint of central chest pain, non radiation. pt admits onset while at rest, hx of VA and quad bypass in 2014. pt admits nausea, diaphoresis and fatigue with the onset. pt denies shortness of breath. Location: reports: central Chest Pain Radiation: reports: no radiation Quality of Pain: reports: pressure, sharp Severity in ED: moderate (7/10) Onset/Duration: 1 hour ago Timing: still present Context/Activities at Onset: reports: rest Modifying Factors: improves with: nothing Associated Symptoms: reports: dizziness, fatigue, nausea. denies: abdominal pain, back pain, fever/chills, shortness of breath Nitro Today/Relief: no nitro taken today Aspirin Treatment Today: 81 mg x 1, provided at home Prior Chest Pain/Cardiac Workup: reports: heart attack Similar Symptoms Previously?: No Recently Seen Here or By Another Healthcare Provider: No Review of Systems - Adult - REVIEW OF SYSTEMS - ADULT Constitutional: reports: chills, fatique. denies: fever Eyes: reports: no symptoms reported Ears, Nose, Mouth & Throat: reports: no symptoms reported Cardiovascular: reports: chest pain. denies: palpitations, syncope Respiratory: denies: cough, dyspnea on exertion, shortness of breath Gastrointestinal: reports: nausea. denies: abdominal pain, diarrhea, vomiting Genitourinary: denies: dysuria, frequency, flank pain Musculoskeletal: denies: back pain, joint pain, neck pain Integumentary: reports: no symptoms reported Neurological: reports: dizziness/vertigo. denies: headache/migraines, syncope Psychiatric: reports: no symptoms reported Endocrine: reports: no symptoms reported Hematologic/Lymphatic: reports: no symptoms reported Allergic/Immunologic: reports: no symptoms reported All Other Systems: Reviewed and Negative Past History - Adult - PAST MEDICAL HISTORY-ADULT Review of Records: reports: Old Records Reviewed, Nursing Assessment Review, Medications Reviewed, Social history reviewed & non-contributory. Major Childhood Illnesses: reports: denies history Cardiovascular: reports: CAD, CHF, HTN, hyperlipidemia, VA Respiratory: reports: denies history Gastrointestinal: reports: denies history Obstetrical/Gynecological: reports: denies history Genitourinary: reports: denies history Musculoskeletal: reports: arthritis Neurological: reports: denies history Endocrine/Immune: reports: Diabetes Other Conditions: reports: denies history - PRIOR SURGERIES/PROCEDURES Surgical/Procedure History: reports: CABG, orthopedic (extremity), back/neck - IMMUNIZATION STATUS Childhood Immunizations: See Nurse Assessment Flu Vaccine: See Nurse Assessment - FAMILY HISTORY Family History: reviewed, not pertinent - SOCIAL HISTORY Smoking: denies Substance Use: alcohol Alcohol Use Frequency: occasionally Living Situation: family Physical Exam-General - PHYSICAL EXAM-ADULT Initial Vital Signs Reviewed: Yes - CONSTITUTIONAL General Appearance: alert, no apparent distress - EYES Eyes: PERRL/EOMI - HEAD, EARS, NOSE, MOUTH & THROAT HENMT: normocephalic/atraumatic, moist mucous membranes - NECK Neck: non-tender, full range of motion, supple, normal inspection - RESPIRATORY Respiratory: chest non-tender, lungs clear, normal breath sounds, no pleuratic chest pain, no respiratory distress, no accessory muscle use - CARDIOVASCULAR Cardiovascular: normal peripheral pulses, regular rate, rhythm, no edema - GASTROINTESTINAL (ABDOMEN) Abdominal Exam: normal bowel sounds, non tender, soft - LYMPHATIC Lymphatic: no adenopathy - MUSCULOSKELETAL Back Exam: normal inspection, no CVA tenderness, no vertebral tenderness Extremity: normal range of motion, non-tender, normal gait, normal inspection - SKIN Integumentary: normal turgor, warm/dry, pallor - NEUROLOGIC Neurologic: grossly normal, no motor/sensory deficits - PSYCHIATRIC Psych/Mental Status: normal mood/affect - HEART Score HEART Score: History: Moderately Suspicious HEART Score: ECG: Non-Specific Repolarization Disturbance/LBBB/PM HEART Score: Age: 45-65 Years HEART Score: Risk Factors for Atherosclerotic Disease: > or = 3 Risk Factors or History of Atherosclerotic Disease HEART Score: Troponin: < or = Normal Limit Total HEART Score:: 5 Progress - PLAN OF CARE/RESULTS Progress/Plan/Lab Results: Vital Signs - 8 hr 08/04/19 21:48 08/04/19 22:24 08/04/19 22:25 Temperature 97.7 F Pulse Rate 86 88 88 Respiratory Rate 18 21 16 Blood Pressure 164/114 152/118 O2 Sat by Pulse Oximetry 89 L 98 98 08/04/19 22:30 08/04/19 22:32 08/04/19 22:45 Temperature Pulse Rate 87 89 91 H Respiratory Rate 16 13 22 Blood Pressure 158/110 O2 Sat by Pulse Oximetry 98 98 98 08/04/19 23:00 08/04/19 23:01 08/04/19 23:15 Temperature Pulse Rate 88 88 79 Respiratory Rate 15 19 19 Blood Pressure 157/107 O2 Sat by Pulse Oximetry 97 98 97 Laboratory Results - last 24 hr 08/04/19 08/04/19 08/04/19 22:01 22:01 22:01 WBC 8.06 RBC 5.63 Hgb 15.4 Hct 46.6 MCV 82.8 MCH 27.4 MCHC 33.0 RDW Std Deviation 14.8 H Plt Count 222 MPV 10.3 Immature Gran % (Auto) 0.2 Neut % (Auto) 51.6 Lymph % (Auto) 38.8 [place] % (Auto) 7.1 Eos % (Auto) 2.1 Baso % (Auto) 0.2 Immature Gran # (Auto) 0.02 Neut # (Auto) 4.15 Lymph # (Auto) 3.13 [place] # (Auto) 0.57 Eos # (Auto) 0.17 Baso # (Auto) 0.02 D-Dimer, Quantitative Sodium 140 Potassium 3.9 Chloride 100 Carbon Dioxide 24 L Anion Gap 16 BUN 19 Creatinine 1.1 Estimated GFR/1.73 m2 > 60 BUN/Creatinine Ratio 17 Glucose 270 H Calculated Osmolality 291 Calcium 9.2 Magnesium 2.1 Total Bilirubin 1.47 H AST 29 ALT 38 Alkaline Phosphatase 94 Creatine Kinase 111 Troponin T < 0.010 Total Protein 7.6 Albumin 4.2 Globulin 3.4 Albumin/Globulin Ratio 1.2 08/04/19 22:01 WBC RBC Hgb Hct MCV MCH MCHC RDW Std Deviation Plt Count MPV Immature Gran % (Auto) Neut % (Auto) Lymph % (Auto) [place] % (Auto) Eos % (Auto) Baso % (Auto) Immature Gran # (Auto) Neut # (Auto) Lymph # (Auto) [place] # (Auto) Eos # (Auto) Baso # (Auto) D-Dimer, Quantitative < 0.27 Sodium Potassium Chloride Carbon Dioxide Anion Gap BUN Creatinine Estimated GFR/1.73 m2 BUN/Creatinine Ratio Glucose Calculated Osmolality Calcium Magnesium Total Bilirubin AST ALT Alkaline Phosphatase Creatine Kinase Troponin T Total Protein Albumin Globulin Albumin/Globulin Ratio Orders Category Date Time Status Cardiac Monitoring DIRECTED Care 08/04/19 21:56 Active CHEST-PORTABLE [RAD] Stat Exams 08/05/19 00:22 Ordered CBC WITH ELECTRONIC DIFF [HEME] Stat Lab 08/04/19 22:01 Completed CK PROFILE [SP CHEM] Stat Lab 08/04/19 22:01 Completed CK TOTAL [CHEM] Stat Lab 08/05/19 00:22 Uncollected COMPREHENSIVE METABOLIC PANEL [CHEM] Stat Lab 08/04/19 22:01 Completed D-DIMER [COAG] Stat Lab 08/04/19 22:01 Completed MAGNESIUM [CHEM] Stat Lab 08/04/19 22:01 Completed TROPONIN T Stat Lab 08/04/19 22:01 Completed TROPONIN T Stat Lab 08/05/19 00:22 Uncollected Aspirin Med 08/04/19 22:02 Discontinued 243 mg PO NOW ONE Morphine Med 08/04/19 22:37 Discontinued 4 mg IV NOW ONE Nitroglycerin Med 08/04/19 22:01 Discontinued 1 inch TOP NOW ONE Oxygen Device Stat Oth 08/04/19 21:55 Active Pulse Oximetry Stat Oth 08/04/19 21:56 Active EKG [EKG] Stat Ther 08/04/19 21:47 Draft EKG [EKG] Stat Ther 08/04/19 21:55 Ordered EKG [EKG] Stat Ther 08/04/19 22:37 Ordered Result Diagrams: 08/04/19 22:01 08/04/19 22:01 - REASSESSMENT Reassessment #1 Time Reassessed: 23:25 Status: improving Reassessment Comment: chest pain is almost gone - EKG 1 Time of EKG reading by physician:: 21:51 EKG Read and Signed by:: Aston Davila EKG Interpretation (*Must complete 3 of following elements*): Abnormal (poss LAE, non specific t wave abnormality) Rate: 93 Rhythm: sinus with 1st degree AV block [place]: normal QRS: NSIVCD IN Interval: normal 2 Time of EKG reading by physician:: 00:49 EKG Read and Signed by:: Aston Davila Rate: 64 Rhythm: NSR [place]: normal Comments: no interval changes from initial EKG - CONSULTS/PCP/HOSPITALIST Notification #1 *Consult/PCP/Hospitalist*: Dr. Dee, hospitalist Time Discussed: 00:25 Consult Disposition: Admit Departure - Departure Date of Disposition Decision: 08/05/19 Time of Disposition Decision: 00:28 DIAGNOSIS: Chest pain Qualifiers: Chest pain type: unspecified Qualified Code(s): R07.9 - Chest pain, unspecified CAD (coronary artery disease) Qualifiers: Coronary Disease-Associated Artery/Lesion type: unspecified vessel or lesion type [place] vs. transplanted heart: [place] heart Associated angina: with unspecified angina Qualified Code(s): I25.119 - Atherosclerotic heart disease of [place] coronary artery with unspecified angina pectoris Hypertension Qualifiers: Hypertension type: unspecified Qualified Code(s): I10 - Essential (primary) hypertension Disposition: ADMITTED INPATIENT 09 Certified Medical Emergency: Emergent Condition: Stable Referrals and Follow-Ups: Joseline Gill CRNP [Primary Care Provider] - - Critical Care Note This patient required my direct & personal management of CC.: No Attestation - Physician/ ANNA Attestation Patient care was provided by Advanced Practice Provider:: No The physician spent face to face time with patient:: Yes Advanced Practice Provider documentation review:: Supervising physician onsite and consulted in the evaluation and care of this patient. The physician did have a face to face encounter with the patient. This chart was documented by the indicated scribe, (Jade Couch Scribe) and accurately reflects the services I performed and decisions made by me, Aston Davila MD, as attested by the provider's signature.
--- NOTE | 2019-08-05 00:48 | EKG Report ---
Test Performed on : 08/04/2019 11:22:51 PM Test Reason : pain Blood Pressure : / mmHG Vent. Rate : 077 BPM Atrial Rate : 077 BPM P-R Int : 208 ms QRS Dur : 118 ms QT Int : 438 ms P-R-T Axes : 062 038 092 degrees QTc Int : 495 ms Normal sinus rhythm. Left atrial enlargement Nonspecific intraventricular conduction delay Nonspecific T wave abnormality Prolonged QT Abnormal ECG When compared with ECG of 04-AUG-2019 21:50, (Unconfirmed) No significant change was found Unconfirmed Result
[2019-08-05] MEDS ORDERED: LOVENOX SUBQ SCH (06:00)
--- NOTE | 2019-08-05 06:59 | Diag Imaging Result Doc PS360 ---
CHEST-PORTABLE - 08/05/2019 INDICATION: chest pain COMPARISON: 07/02/2019 FINDINGS: Stable sternotomy wires. Stable cardiomegaly and pulmonary vascular congestion. There is ill-defined increased interstitial infiltrate in the lung bases bilaterally. No significant pleural effusion. IMPRESSION: Hazy interstitial opacities in the lung bases which may represent interstitial pulmonary edema. Electronically signed by Alexis Cortez 08/05/2019 6:57 AM
[2019-08-05 07:02] LABS: INR 1.11; PROTIME 14.5 Seconds (11.0-16.0); PTT 30.1 Seconds (22.3-41.8)
--- NOTE | 2019-08-05 07:27 | EKG Report ---
Test Performed on : 08/05/2019 06:41:18 AM Test Reason : Chest Pain Blood Pressure : / mmHG Vent. Rate : 066 BPM Atrial Rate : 066 BPM P-R Int : 216 ms QRS Dur : 120 ms QT Int : 446 ms P-R-T Axes : 048 -26 112 degrees QTc Int : 467 ms Sinus rhythm. with 1st degree AV block. Possible Left atrial enlargement Cannot rule out Anterior infarct , age undetermined T wave abnormality, consider lateral ischemia Abnormal ECG When compared with ECG of 04-AUG-2019 23:22, (Unconfirmed) No significant change was found Confirmed by Kathy PANTOJA, Tariq ([id number]) on 08/05/2019 9:02:33 AM
[2019-08-05] MEDS ORDERED: ZOFRAN IV PRN (07:33)
[2019-08-05] MEDS ORDERED: MORPHINE IV PRN (07:33)
[2019-08-05] MEDS ORDERED: TYLENOL PO PRN (07:33)
[2019-08-05 07:35] LABS: AGAP 12; BUN 14 mg/dL (8-22); CALCIUM 8.8 mg/dL (8.8-10.2); CHLORIDE 102 mmol/L (98-107); CK PROFILE 189 U/L (24-204); COSMO 287; CREATININE 0.9 mg/dL (0.7-1.2); ESTIMATED GFR > 60; GLUCOSE 225 mg/dL (70-104); MAGNESIUM 2.1 mg/dL (1.5-2.7); POTASSIUM 4.3 mmol/L (3.5-5.1); SODIUM 140 mmol/L (136-145); TCO2 26 mmol/L (25-35)
[2019-08-05] MEDS ORDERED: LASIX PO SCH (09:00)
[2019-08-05] MEDS ORDERED: LIPITOR PO SCH (09:00)
[2019-08-05] MEDS ORDERED: COREG PO SCH (09:00)
[2019-08-05] MEDS ORDERED: PRINIVIL PO SCH (09:00)
[2019-08-05] MEDS ORDERED: ASPIRIN PO SCH (09:00)
[2019-08-05] MEDS ORDERED: ALDACTONE PO SCH (09:00)
[2019-08-05] MEDS: HUMULIN R SUBQ SCH ×2 (11:52→16:24)
--- NOTE | 2019-08-05 11:54 | HISTORY AND PHYSICAL ---
PRIMARY CARE PROVIDER: MARCOS Hirsch PATIENT'S TELETYPE CLERK: Dr. Hernandez. DATE AND TIME: 08/05/2019 at 0600. CHIEF COMPLAINT: Chest pain. HISTORY OF PRESENT ILLNESS: Mr. Yoder is a 64-year-old male with a past medical history of coronary artery disease status post coronary artery bypass graft, CHF, hypertension, hyperlipidemia, and diabetes mellitus. He states that last night at approximately 9:00 in the evening that he did begin to have chest pain that was in the center of his chest. He states this radiated straight through to his back between his shoulder blades. He also reported associated symptoms of diaphoresis, blurry vision, and nausea. He states that he was sitting down and were watching TV when his chest pain started. He stated that he did take 80 mg aspirin at home though did report they gave him 3 more 81 mg aspirins after his arrival to the emergency department. He states that his chest pain was a 10 out of 10. He did present to the ER for further evaluation. He states that after receiving morphine in the ER that his chest pain did subside, and has not returned since. He is not having any chest pain at this time. The patient denies any recent changes in any of his medicines except for Dr. Hernandez did take him off of his anticoagulants. The patient was found during his most recent admission in June of 2019 to have a left ventricle thrombus. This is while he was on an anticoagulants to begin with. He denies any headache. He did report some dizziness and lightheadedness during his chest pain episode. He denies any shortness of breath or cough. He denies any abdominal pain, vomiting, or diarrhea. He denies any hematochezia or melena. He denies any dysuria or urinary frequency. He also denies any pain, numbness, tingling or swelling in extremities. Upon evaluation in the ER, he was noted to have a negative first set of enzymes. On his second set of cardiac enzymes. His troponin did increase some from the previous with a reading of 0.023. The patient is still denying any chest pain. EKG performed in the ER did show a sinus rhythm with a first-degree AV block though the first-degree AV block is new. Other than this, there does not appear to be any other acute changes from his previous EKG in June of 2019. At this time, the patient will be admitted for further treatment evaluation of his chest pain. REVIEW OF SYSTEMS: A 14 point review of systems was conducted with the patient. All were negative except for pertinent positives mentioned in the HPI. PAST MEDICAL HISTORY: 1. Coronary artery disease status post coronary artery bypass graft x4 vessels. 2. Congestive heart failure with last known ejection fraction of 27 to 30 percent in June of 2019. 3. Hypertension. 4. Hyperlipidemia. 5. Diabetes mellitus. 6. He does have a history of cholelithiasis. PAST SURGICAL HISTORY: 4-vessel coronary artery bypass graft. SOCIAL HISTORY: The patient has no known past or present tobacco or illicit drug use. He says he rarely drinks alcohol. 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 He is though is currently in the process of going through a divorce. FAMILY HISTORY: Positive for his father having a history of heart disease and coronary artery bypass graft. His mother had a history of gallbladder disease. ALLERGIES: Patient has no known allergies. HOME MEDICATIONS: 1. Lipitor 10 mg p.o. daily. 2. Coreg 25 mg p.o. b.i.d. 3. Lasix 20 mg p.o. every morning. 4. Glimepiride 4 mg p.o. every morning. 5. Lisinopril 20 mg p.o. daily. 6. Metformin 1000 mg p.o. b.i.d. 7. Potassium chloride 10 mEq p.o. daily. 8. Aldactone 25 mg p.o. every morning. DIAGNOSTIC DATA: White blood cell count is 8060, hemoglobin 15.4, hematocrit 46.6, and platelet count is 222,000. PT 14.5, INR 1.11, PTT is 30.1. D-dimer is less than 0.27. Sodium 140, potassium 3.9, chloride 100. Serum bicarbonate is 24, BUN 11, creatinine 1.1 with GFR greater than 60. Glucose 270, calcium 9.2, magnesium 2.1, total bilirubin is elevated at 1.47, though other liver function tests within normal limits. CK 111. Troponin less than 0.01. 2 hour repeat CK was 102 with a troponin of 0.023. EKG showed sinus rhythm with a first-degree AV block at a rate of 67, with a QTc of 467. Portable chest x-ray did show hazy interstitial opacities in the lung bases which may represent interstitial pulmonary edema. PHYSICAL EXAMINATION: VITAL SIGNS: Temperature 98.8 degrees, heart rate 68, respirations 12, blood pressure 110/85, oxygen saturation is 98%, and nasal cannula at 2 L. GENERAL: Mr. Yoder is a pleasant 64-year-old male. He was resting in the ER stretcher. He is in no acute distress. He was awake, alert, and able to answer questions appropriately. HEENT: Head is atraumatic, normocephalic. Pupils are equal, round, and reactive to light, 3 mm bilaterally and brisk. Oral mucosa is moist. Oropharynx clear. NECK: Supple. Trachea midline. CARDIOVASCULAR: The patient has S1-S2 present. No murmurs, gallops, or rubs appreciated with regular rate and rhythm. PULMONARY: The patient has symmetrical chest expansion bilaterally. Lung sounds are clear to auscultation in bilateral full ochoa. ABDOMEN: Soft and nontender, and does not appear to be distended though the patient does have a protuberant abdomen noted. Bowel sounds are present in all 4 quadrants. EXTREMITIES: No cyanosis or edema noted. Pulse, motor, and sensory were intact in all extremities Radial and pedal pulses were 2+ bilaterally. INTEGUMENTARY: The patient's skin is pink, warm, and dry. NEUROLOGICAL: The patient is alert and oriented person, place, time, and situation. He is able to move all extremities. There are no focal neurological deficits noted. ASSESSMENT AND PLAN: 1. Chest pain. For further evaluation of this, we will continue with the series of cardiac enzymes. We will repeat EKG in the morning. He did receive a full dose aspirin upon arrival to the ER. We will place p.r.n. orders for chest pain if needed. We have placed a consult with Dr. Zelaya with Cardiology. We will await their evaluation and further recommendations for management. 2. Coronary artery disease status post coronary artery bypass graft. We will continue with the orders as mentioned above for #1 as well as we have continued his regularly prescribed cardiac medications including his aspirin. 3. Congestive heart failure. The patient does take oral Lasix daily. We have continued this. There was some mention of possible interstitial pulmonary edema on his lungs. At this time, the patient is not complaining of any shortness of breath. He does not have any peripheral edema noted. He has lung sounds that are clear to auscultation in bilateral full ochoa. We will continue with his regularly prescribed medicines. We will await Cardiology's evaluation. 4. Hypertension. Continue his regular antihypertensive medications of Coreg and lisinopril 5. Hyperlipidemia. We will continue his atorvastatin. 6. Diabetes mellitus. We have held his oral diabetic medications at this time. We will place him on regular insulin sliding scale per low-dose protocol. We will do pattern fingerstick blood sugars. 7. Deep vein thrombosis prophylaxis provided with Lovenox 40 mg subcutaneously daily. 8. Recent history of left ventricle thrombus. The patient was on anticoagulation upon discharge from the hospital in June 2019 though he states he did see Dr. Hernandez last week and Dr. Hernandez discontinued his anticoagulants. The patient has been placed on the medical floor of telemetry. He will have vital signs q.4 hours. We will do strict intake and output. We will repeat a BMP, magnesium and cardiac enzymes this morning. We have also added on a proBNP as well. Further orders and recommendations pending hospital course, diagnostic studies, and physician evaluation. Dictated by MARCOS Gr for George Dee MD I have performed a face to face diagnostic evaluation. Labs/ Xray- reviewed, Exam- Chest- clear, CV- regular. A/P- Chest Pain- Admit, Cardiac work up, cardiology consult. Dr. Dee cc: George Dee MD [facility]
--- NOTE | 2019-08-05 12:05 | EKG Report ---
Test Performed on : 08/05/2019 10:57:35 AM Test Reason : chest pain Blood Pressure : / mmHG Vent. Rate : 083 BPM Atrial Rate : 083 BPM P-R Int : 202 ms QRS Dur : 120 ms QT Int : 422 ms P-R-T Axes : 059 048 088 degrees QTc Int : 495 ms Normal sinus rhythm. Possible Left atrial enlargement Nonspecific intraventricular conduction delay Nonspecific T wave abnormality Abnormal ECG When compared with ECG of 05-AUG-2019 06:41, No significant change was found Confirmed by Kathy PANTOJA, Tariq ([id number]) on 08/06/2019 8:48:46 AM
--- NOTE | 2019-08-05 13:57 | ECHO REPORT ---
ORDER DATE: 08/05/2019 INDICATION: History of LV thrombus, congestive heart failure. FINDINGS: This is a limited study with 2D echocardiogram performed only. 1. The left ventricle appears dilated with an end-diastolic dimension of 5.8 cm. Mild left ventricular hypertrophy with an interventricular septal wall thickness of 1.3 cm. Severe LV systolic dysfunction with an estimated ejection fraction of 20%. There is global hypokinesis with more prominent akinesis to dyskinesis of the apex. There does appear to be LV thrombus at the apex. There appears to be an organized old clot that is circular in nature in the apex with a dimension of 1.4 x 1.5 cm. There is also a more hazy disorganized globular clot that seems to be adjacent to it. 2. No mitral valve prolapse. There does appear to be a ruptured chordae associated with the anterior leaflet. This was noted on the last echocardiogram on June 30. No Doppler evaluation was performed on this study. Moderate mitral regurgitation was identified on the last echocardiogram. 3. Aortic valve appears to open well. 4. There is moderate left atrial enlargement with a dimension of 5.3 cm. 5. No pericardial effusion was identified. 6. Limited evaluation of the right ventricle. cc: MD Hayley Arndt PA
[2019-08-05] MEDS ORDERED: LOVENOX SUBQ ONE ×2 (14:09→21:00)
[2019-08-05 18:23] VITALS: BP 107/68
--- NOTE | 2019-08-05 19:12 | CARDIOLOGY CONSULTATION ---
DATE: 08/05/2019 IMPRESSION: 1. Acute coronary syndrome with recurrent angina last night, lasting at least an hour with mild elevation in troponin this morning. 2. Atherosclerotic coronary disease. A.) Status post previous myocardial infarction in 2014. B.) Status post coronary artery bypass grafting in 2014 in [place]. C.) Ischemic cardiomyopathy. Recent noninvasive studies indicated left ventricular ejection fraction 25 to 30 percent and echocardiography indicated extensive infarction in the inferolateral region with apical thrombus that appeared to be organized. 3. Hypertension. 4. Hyperlipidemia. 5. Type 2 diabetes mellitus. 6. Substance abuse with marijuana on a regular basis. RECOMMENDATIONS: 1. Lovenox 1 mg/kg subcutaneously q.12. 2. Given clinical presentation, favor further evaluation with cardiac catheterization and selective coronary angiography in interventional capable facility. This was discussed with the patient and [facility] has been contacted to assist with further management. HISTORY: This 64-year-old, white male, with past history of previous myocardial infarction, coronary artery bypass grafting in 2014, hypertension, hyperlipidemia, type 2 diabetes mellitus, and anxiety, was admitted to emergency room last night with chest pain compatible with angina. He was recently hospitalized here in June, with pneumonia. During his hospital stay, he was evaluated noninvasively from a cardiac standpoint and left ventricular ejection fraction was around 25 to 30 percent with extensive infarction in the inferolateral region of left ventricle. Apical thrombus was also noted that appeared to be organized. Anticoagulation was initiated. The patient left the hospital against medical advice. He had followup with his regular concrete pourer, Dr. Dia Hernandez, last week. Last night, he got into an argument with his soon-to-be ex- and started having substernal chest discomfort characterized as a severe pressure. He tried to calm down, but the discomfort did not resolve and was fairly intense. He came to the emergency room by automobile. Chest discomfort was alleviated with treatment in the emergency room. All and all, his discomfort lasted at least an hour. He has not had any further recurrence. Initial troponin was normal, but subsequent troponin this morning has demonstrated mild increase. Records indicate that his bypass consisted of a left internal mammary artery graft to left anterior descending coronary artery, saphenous vein graft to first obtuse marginal, saphenous vein graft to first diagonal, and saphenous vein graft to posterior descending artery. PAST MEDICAL HISTORY: 1. Atherosclerotic coronary disease as outlined above. 2. Hypertension. 3. Hyperlipidemia. 4. Type 2 diabetes mellitus. 5. Anxiety. PAST SURGICAL HISTORY: Includes coronary artery bypass grafting in 2015, unspecified neck surgery, and foot fracture requiring surgical management. ALLERGIES: He has no known drug allergies. MEDICATIONS PRIOR TO ADMISSION: As listed. SOCIAL HISTORY: He has been 10 times. He is soon to be from his tenth . 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 He smokes marijuana perhaps twice a day. He does not use alcohol. FAMILY HISTORY: Positive for coronary artery disease. REVIEW OF SYSTEMS: Pulmonary: Noncontributory. Gastrointestinal: Noncontributory. Constitutional: Noncontributory. Remainder of review of systems is negative/noncontributory beyond history of present illness with 14-total systems reviewed. PHYSICAL EXAMINATION: General: A pleasant, older white male, in no distress. Blood pressure 139/99, heart rate 79. HEENT: Extraocular movements intact. Mucous membranes moist. Neck: Supple without jugular venous distention. There are no carotid bruits. Chest: Clear to auscultation. Cardiac: Regular rate and rhythm without appreciable murmur or gallop. Abdomen: Soft. Bowel sounds normal. Extremities: Without edema. Neurologic: Alert and fully oriented. Speech is fluent. He moves all 4 extremities equally well. Skin: Warm and dry. Psychiatric: Mood is appropriate. DIAGNOSTIC DATA: A 12-lead EKG demonstrates normal sinus rhythm, left atrial abnormality, nonspecific interventricular conduction delay, delayed precordial R-wave progression, cannot exclude previous anterior infarct, and nonspecific T-wave abnormality. LABORATORY DATA: Includes sodium 140, potassium 4.3, chloride 102, carbon dioxide 26, BUN 14, creatinine 0.9. Glucose 225. Initial CPK 102, followup CPK 189. Initial troponin T less than 0.01, with followup troponin T of 0.023 and 0.135. D-dimer less than 0.27. White blood cell count 8.06, hematocrit 46.6, hemoglobin 15.4, platelet count 222,000. ProTime 14.5, INR 1.1. cc: Girish Maciel MD
--- NOTE | 2019-08-05 20:40 | PROGRESS NOTE ---
DATE: 08/05/2019 SUBJECTIVE: Patient reports feeling fine. No chest pain. OBJECTIVE: Vital signs: Temperature 97.6 degrees, heart rate 76, respiratory rate 14, blood pressure 140/93, O2 saturation 95% on room air again. General: This is a 64-year-old male, lying in bed in no acute distress. Cardiovascular: S1, S2 heard. No murmurs, gallops, or rubs. Regular rate and rhythm. Respiratory: Clear bilaterally to auscultation. No work of breathing or using accessory muscles. Abdomen: Soft, nontender to palpation. Bowel sounds present. No organomegaly. Extremities: No clubbing, cyanosis, or edema. Peripheral pulses present in both legs. Neurological exam: Patient alert and oriented x3. Moves 4 extremities. LABORATORY DATA: Reviewed. ASSESSMENT: 1. Chest pain. 2. Coronary artery disease status post coronary artery bypass graft. 3. Congestive heart failure. 4. Hypertension. 5. Hyperlipidemia. 6. Diabetes mellitus type 2. PLAN: 1. Patient has been evaluated by Cardiology. Patient is chest pain-free right now. At this point, decision was made to transfer this patient to [facility] for left heart catheterization. The patient is supposed to be transferred today at the end of the day. Regarding her coronary artery disease and congestive heart failure, the patient is stable. 2. We will continue with home medications as well for hypertension. 3. For diabetes mellitus type 2, we will continue with sliding scale and accucheks before meals and also at bedtime. 4. We will continue to monitor. cc: Bk Jackson MD [facility]
[2019-08-06] MEDS ORDERED: LOVENOX SUBQ ONE (13:26)
--- NOTE | 2019-08-06 16:13 | DISCHARGE SUMMARY ---
ADMISSION DATE: 08/05/2019 DISCHARGE DATE: 08/05/2019 DISCHARGE DIAGNOSES: 1. Chest pain in a patient with coronary artery disease. 2. Congestive heart failure. 3. Hypertension. 4. Hyperlipidemia. 5. Diabetes mellitus. CONSULTATIONS: Dr. Girish Maciel, from Cardiology. PROCEDURES: 1. Chest x-ray done on admission showed hazy interstitial opacities in the lung base that may represent interstitial pulmonary edema. 2. Echocardiogram limited views show an ejection fraction off 20%. There does appear to be a ruptured chordae associated with the anterior left lead of the mitral valve. There is left ventricle very dilated. HOSPITAL COURSE: This is a 64-year-old male, with past medical history of coronary artery disease status post CABG, CHF, hypertension, hyperlipidemia who presented to the emergency department complaining of chest pain. He was evaluated by Cardiology. They suggest to transfer this patient to [facility]. This patient has a severe has congestive heart failure with severely depressed ejection fraction. There is also what looks like mitral valve chordae ruptured. So, for those reasons the patient was sent to [facility]. The patient is going to be transported by ambulance. DISCHARGE PHYSICAL EXAMINATION: Vitals: Temperature 98.0 degrees, heart rate 72, respiratory rate 20, blood pressure 107/68, O2 saturation 97% on room air. General examination: This is a 64-year-old male, lying in bed, in no acute distress. Cardiovascular: S1, S2 heard. No murmurs, gallops, or rubs. Regular rate and rhythm. Respiratory exam: Clear bilaterally to auscultation. No work of breathing or using accessory muscles. Abdomen: Soft, nontender to palpation. Bowel sounds present. No organomegaly. Extremities: No clubbing, cyanosis, or edema. Peripheral pulses present in both legs. Neurological: The patient is alert, oriented x3. Moves all 4 extremities. DISCHARGE DISPOSITION: Patient is going to [facility]. cc: Bk Jackson MD
== END 2019-08-05 18:23 | disposition short-term general hospital (02) | DRG 302 ==
LOC: ED 21:45 → SUATTDRO 08-05 04:56 → EDIPHOLD 08-05 04:56 → 3N 08-05 06:30
PROVIDERS: ATTEND Internal Medicine